=== PATIENT | male | born 1995 | race Caucasian/White ===

== ENCOUNTER 2020-09-30 10:31 | Emergency (ER) | payer OTHER, SELFPAY ==
[2020-09-30 10:37] VITALS: BP 152/86; PULSE 82; RESP 18; TEMP 36.6; O2SAT 98; BMI 42.5
--- NOTE | 2020-09-30 11:37 | ED_ITS ---
HPI - Dental/Oral General Chief complaint: Dental/Oral Stated complaint: dental care Time Seen by Provider: 09/30/20 11:37 Source: patient Mode of arrival: ambulatory History of Present Illness HPI Narrative: 25-year-old male with no significant past medical history presenting to the ED complaining right-sided lower molar pain x a few days. Admits to chronic issues with tooth/cracked tooth which was packed by dentist over year ago/needs crown however was delayed secondary to COVID-19. States some of area cracking over the past 2 weeks, but more cracked the other day causing increased/unremitting pain. Denies drainage from area, swelling, fever, chills, oral swelling, difficulty to swallow MD Complaint: tooth pain Related Data Previous Rx's Medication Instructions Recorded amoxicillin 875 mg-potassium 1 tab PO Q12H 7 Days #14 tab 09/30/20 clavulanate 125 mg tablet (Augmentin) hydrocodone 5 mg-acetaminophen 325 1 tab PO Q8H PRN 3 Days #9 tab 09/30/20 mg tablet naproxen 500 mg tablet 500 mg PO BID PRN 10 Days #20 tab 09/30/20 Allergies Allergy/AdvReac Type Severity Reaction Status Date / Time No Known Allergies Allergy Verified 09/30/20 10:39 Review of Systems Review of Systems: Constitutional: No Fever, No Chills ENT/Mouth: +dental pain, No Ear Pain,No Sinus Pain, No Hoarseness, No sore throat, No Swallowing Difficulty Cardiovascular: No Chest Pain, No SOB Respiratory: No Cough Gastrointestinal: No Nausea, No Abdominal pain Musculoskeletal: No joint pain Skin: No Skin Lesions, No rash Yes all other systems are reviewed and are negative [facility] Past Medical History Attestation statement: The following information was validated with the patient. Social History Social History Advance Directives: No Advance Directives Information Provided: No Physical Exam Vital Signs: Vital Signs: Last Vital Signs Temp 98 F 09/30/20 10:37 Pulse 82 09/30/20 10:37 Resp 18 09/30/20 10:37 BP 152/86 H 09/30/20 10:37 Pulse Ox 98 09/30/20 10:37 Body Mass Index 42.5 Const: General: cooperative, healthy appearing and no acute distress Orientation/consciousness: patient oriented x3 Limitations: no limitations HENMT: Other: Right lower 3rd molar cracked with packing in place. Mild surrounding gingival swelling. No erythema, no cellulitis, no fluctuance/induration, no drainage. Head: Yes normal to inspection Ears: hearing grossly normal bilaterally General nose exam: Normal external nose present Face and sinus: Yes normal facial exam Mouth: Normal oral and palatal mucosa present Throat: Yes posterior oropharynx normal, Yes tonsils normal, Yes uvula midline, No peritonsillar mass and No uvular edema Eyes: General: appearance normal, both eyes and all related structures EOM: EOMs intact bilaterally Neck: Neck: Yes normal visual inspection Resp: Effort & Inspection: normal respiratory effort and no respiratory distress Cardio: Rate: regular rate Skin: Rashes: no rashes Wounds: no wounds Neuro: General: patient oriented x3 Gait exam (Neuro): Normal gait present Extrem: General: Yes normal to inspection MDM - Dental/Oral MDM Narrative Medical decision making narrative: 25-year-old male with no significant past medical history presenting to the ED complaining right-sided lower molar pain x a few days. On exam VSS, NAD, physical exam as above. Concern for early dental infection/gingivitis. Discussed with patient he needs to follow up with his dentist BRINDA. Will initiate Augmentin No evidence of dental abscess at this time Discharge Plan Discharge Clinical Impression: Toothache Patient Disposition: Home, Self-Care Instructions: Toothache (ED) Additional Instructions: Augmentin is an antibiotic, please take as prescribed You need to follow-up with her dentist Ice her face Naproxen as an anti-inflammatory/pain medication, take with food [place] as an opiate pain medication, take only when pain is severe If symptoms persist or worsen, fever, facial swelling please return to the ED Prescriptions: New hydrocodone-acetaminophen 5-325 mg tablet 1 tab PO Q8H PRN (Reason: pain, severe) 3 Days Qty: 9 RF: 0 naproxen 500 mg tablet 500 mg PO BID PRN (Reason: pain) 10 Days Qty: 20 RF: 0 amoxicillin-pot clavulanate [Augmentin] 875-125 mg tablet 1 tab PO Q12H 7 Days Qty: 14 RF: 0 Referrals: Surinder Lopes [Dentist] - 2 days Vicky Karimi DMD [Dentist] - 2 days Newton Patel DDS [Physician] - 2 days
== END 2020-09-30 11:55 | disposition home or self-care (01) ==
PROVIDERS: Emergency Provider Emergency Medicine
DX: K08.89 Other specified disorders of teeth and supporting structures (principal); Z79.899 Other long term (current) drug therapy
CPT/HCPCS: 99283